=== PATIENT | female | born 1980 | race Caucasian/White ===

== ENCOUNTER 2020-08-06 18:35 | Emergency (ER) | payer BC ==
[~2020-08-06] VITALS: Ht 160 cm; Wt 65.0 kg
[2020-08-06] MEDS ORDERED: HYDROcodone/APAP 7.5 MG/325 MG (LORTAB, LORCET PLUS) TABLET PO ONE (20:00)
[2020-08-06] MEDS: LIDOCAINE 1% INJ 20 ML 20 ML VIAL INJ ONE ×2 (20:22→20:24)
--- NOTE | 2020-08-06 20:28 | ED Integumentary General ---
General Chief Complaint: Bite-Animal/Human/Insect Stated Complaint: DOG BITE TO FACE Nursing Triage Note: Pt arrived via private vehicle with complaint of bite to face. 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 Pt has small laceration to left corner of mouth, and also to top of left ear. Source: patient Exam Limitations: no limitations History of Present Illness Date Seen by Provider: Aug 06, 2020 Time Seen by Provider: 19:15 Initial Comments Patient is a 39-year-old female who presents to the emergency department with her joni with a chief complaint of dog bite to the face. Patient was at a dog track k[employer] and was looking at puppies when a stray dog came up and tried to get to the puppy she was looking at. This sounds like it was a provoked bite as the stray dog was interested in the puppies and the patient was in between them. Patient suffered a laceration to the corner of her mouth on the left as well as bites to the left ear. Patient states her tetanus shot is up-to-date. [facility]'s department was contacted to try and locate the dog however as stated the dog is a stray. Patient denies any other complaints of injury. All other review of systems reviewed and negative except as stated. Timing/Duration: just prior to arrival Severity: moderate Location: face Possible Cause: other (Dog bite) Associated Symptoms: denies symptoms Allergies and Home Medications Allergies Coded Allergies: Penicillins (Verified Allergy, Severe, 08/06/20) Home Medications Clindamycin HCl 300 Mg Capsule, 300 MG PO Q8H Prescribed by: JOHANNA ADAMS on 08/06/202319 Doxycycline Hyclate 100 Mg Tablet, 100 MG PO BID Prescribed by: JOHANNA ADAMS on 08/06/202319 Hydrocodone/Acetaminophen 1 Each Tablet, 1 TAB PO Q4H PRN for PAIN-MODERATE (5- 7) Prescribed by: JOHANNA ADAMS on 08/06/202320 Patient Home Medication List Home Medication List Reviewed: Yes Review of Systems Review of Systems Constitutional: see HPI EENTM: ear pain, mouth pain Respiratory: no symptoms reported Cardiovascular: see HPI Gastrointestinal: no symptoms reported Genitourinary: no symptoms reported Musculoskeletal: no symptoms reported Skin: other (Lacerations to the left side of the face) All Other Systems Reviewed Negative Unless Noted: Yes Past [id number] Hx Patient Social History Recent Infectious Disease Expo: No Physical Exam Vital Signs Vital Signs - First Documented 08/06/20 18:48 Temp 36.6 Pulse 108 Resp 16 B/P (MAP) 139/91 (107) Pulse Ox 100 Capillary Refill : Less Than 3 Seconds General Appearance: WD/WN, no apparent distress HEENT: PERRL/EOMI Neck: full range of motion Cardiovascular: regular rate, rhythm Respiratory: lungs clear, normal breath sounds Extremities: normal range of motion Neurologic/Psychiatric: 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, no motor/sensory deficits, alert, normal mood/affect, oriented x 3 Skin: normal color, warm/dry, other (Half centimeter angulated laceration at the corner of the mouth on the left; patient has a 4 cm superficial laceration just posterior to the auricle, exposed and injured cartilage noted at the apex of this laceration.; Superficial scratches noted to the left cheek) Skin Problem Location: face Procedures/Interventions Wound Location: Ears (posterior auricular laceration 4cm; anterior superior pinna 2cm) Wound Length (cm): 6 Wound's Depth, Shape: superficial, irregular (cartilage visible at apex of the posterior auricular laceration) Wound Explored: clean Irrigated w/ Saline (ccs): 250 Betadine Prep?: No Anesthesia: 1% Lidocaine Volume Anesthetic (ccs): 12 Suture: Ethlion Suture Size: 6-0 Number of Sutures: 10 Layer Closure?: 1 Wound Location: Face (left corner of mouth) Wound Length (cm): 1.5 Wound's Depth, Shape: superficial, irregular Wound Explored: clean Anesthesia: 1% Lidocaine Volume Anesthetic (ccs): 2 Suture: Ethlion Suture Size: 6-0 Number of Sutures: 4 Layer Closure?: 1 Sterile Dressing Applied?: No Progress/Results/Core Measures Results/Orders My Orders Orders - JOHANNA ADAMS MD Hydrocodone/Apap 7.5/325 Tab (Lortab 7. (08/06/20 20:00) Lidocaine 1% Inj 20 Ml (Xylocaine 1% Inj (08/06/20 20:00) Doxycycline Hyclate Tablet (Vibramycin T (08/06/20 23:15) Clindamycin Capsule (Cleocin Capsule) (08/06/20 23:15) Rx-Hydrocodone/Apap 5-325 Mg (Rx-Vicodin (08/06/20 23:15) Medications Given in ED Current Medications Medications Dose Ordered Sig/Pennie Route Start Time Stop Time Status Last Admin Dose Admin Acetaminophen/ Hydrocodone Bitart 1 ea ONCE ONCE PO 08/06/20 20:00 08/06/20 20:01 DC 08/06/20 19:57 1 EA Acetaminophen/ Hydrocodone Bitart 1 ea Q4H PRN PO 08/06/20 23:15 08/06/20 23:55 DC 08/06/20 23:29 1 EA Clindamycin HCl 300 mg ONCE ONCE PO 08/06/20 23:15 08/06/20 23:16 DC 08/06/20 23:28 300 MG Lidocaine HCl 20 ml ONCE ONCE INJ 08/06/20 20:00 08/06/20 20:01 DC 08/06/20 20:24 20 ML Vital Signs/I&O 08/06/20 08/06/20 18:48 23:48 Temp 36.6 Pulse 108 108 Resp 16 20 B/P (MAP) 139/91 (107) 121/82 Pulse Ox 100 99 Blood Pressure Mean: 107 Departure Impression Primary Impression: Dog bite Qualified Codes: W54.0XXA - Bitten by dog, initial encounter Additional Impression: Facial laceration Qualified Codes: S01.81XA - Laceration without foreign body of other part of head, initial encounter Disposition: HOME, SELF-CARE Condition: Stable Departure-Patient Inst. Decision time for Depature: 23:17 Referrals: NO,LOCAL PHYSICIAN (PCP/Family) Primary Care Physician Patient Instructions: Laceration Repair With Stitches (DC) Add. Discharge Instructions: Keep the wounds clean and dry. You may put a little [id number] triple antibiotic ointment on them for the first 1 to 2 days twice daily. Take the antibiotics as prescribed. You will be on them for a total of 5 days. Take an [id number]-[id number] probiotic while on the antibiotics. I have also given you a prescription for hydrocodone to take as needed for pain. Please follow-up with your primary care provider on to ensure that the wounds are healing well. The sutures in your mouth need to come out in 5 days, the ones behind her ear need to come out in 7 to 10 days. Watch for signs of infection such as redness, swelling, drainage of pus or any other concerning findings. Scripts Hydrocodone/Acetaminophen (Hydrocodone-Acetamin 5-325 mg) 1 Each Tablet 1 TAB PO Q4H PRN for PAIN-MODERATE (5-7), #10 TAB Prov: JOHANNA ADAMS MD 08/06/20 Clindamycin HCl (Clindamycin HCl) 300 Mg Capsule 300 MG PO Q8H, #15 CAP Prov: JOHANNA ADAMS MD 08/06/20 Doxycycline Hyclate (Doxycycline Hyclate) 100 Mg Tablet 100 MG PO BID, #10 TAB 0 Refills Prov: JOHANNA ADAMS MD 08/06/20 JOHANNA ADAMS MD Aug 06, 2020 20:28
[2020-08-06] MEDS ORDERED: CLINDAMYCIN 150 MG (CLEOCIN) CAP PO ONE (23:15)
[2020-08-06] MEDS ORDERED: DOXYCYCLINE 100 MG (VIBRAMYCIN) TABLET PO SCH (23:15)
[2020-08-06] MEDS ORDERED: RX-HYDROCODONE/APAP 5/325 MG #4 TAB PK PO PRN (23:15)
[2020-08-06] MEDS ORDERED: DOXY100T2 PO (23:20)
[2020-08-06] MEDS ORDERED: ACHD5005 PO (23:20)
[2020-08-06] MEDS ORDERED: CLIN300C12 PO (23:20)
[2020-08-06 23:48] VITALS: BP 121/82
== END 2020-08-06 23:35 | disposition home or self-care (01) ==
LOC: EDBD 18:38 → ER 18:38
DX: S01.451A Open bite of right cheek and temporomandibular area, initial encounter (principal); S01.352A Open bite of left ear, initial encounter; S01.81XA Laceration without foreign body of other part of head, initial encounter; Z88.0 Allergy status to penicillin; W54.0XXA Bitten by dog, initial encounter
CPT/HCPCS: 99283